=== PATIENT | male | born 1955 | race Caucasian/White ===

== ENCOUNTER 2017-07-15 08:32 | Day surgery (SDC) | payer BC ==
[2017-07-15 09:46] VITALS: BMI 23.1
[2017-07-15] MEDS ORDERED: Propofol 10 mg/ml Inj (20 ML) ONE (12:26)
[2017-07-15] MEDS ORDERED: Lactated Ringer's 1,000 ML IV ONE ×2 (12:35)
[2017-07-15 13:07] VITALS: TEMP 97.6
[2017-07-15 13:12] VITALS: O2SAT 100
[2017-07-15 13:36] VITALS: PULSE 71
[2017-07-15 13:39] VITALS: BP 114/65; RESP 12
== END 2017-07-15 13:37 | disposition home or self-care (01) ==
LOC: C.ENDO 08:32
PROVIDERS: ATTEND Internal Medicine Gastroenterology
DX: Z12.11 Encounter for screening for malignant neoplasm of colon (principal); K57.30 Diverticulosis of large intestine without perforation or abscess without bleeding; K64.1 Second degree hemorrhoids
CPT/HCPCS: 45378; J2704; J3010; J7120